=== PATIENT | female | born 1995 | race African-American/Black ===

== ENCOUNTER 2016-08-02 15:01 | Emergency (ER) | payer MEDICAID ==
[~2016-08-02] VITALS: Ht 172.7 cm; Wt 63.5 kg
--- NOTE | 2016-08-02 16:05 | NUR ---
Presents self to ed due to pelvic pain, spotting, lower back pain x 3 weeks. On iud. LMp 07/28/16. Vss. No dysuria nor hematuria.
[2016-08-02 16:21] LABS: APPEARANCE,URINE Slightly Cloudy (CLEAR); BILIRUBIN,URINE Negative (NEGATIVE); BLOOD, URINE Negative Ery/uL (NEGATIVE); COLOR,URINE Dark (YELLOW); KETONES,URINE Trace (NEGATIVE); LEUKOCYTE ESTERASE ,URINE Negative (NEGATIVE); NITRITE, URINE Negative (NEGATIVE); PROTEIN,URINE 100 mg/dl (NEGATIVE); UGLUCOSE Negative (NEGATIVE); UROBILINOGEN,URINE 0.2 EU/dL (0.2)
[2016-08-02 16:29] LABS: BASOPHILS % (AUTO) 0.5 % (0.0-2.0); EOSINOPHILS # (AUTO) 0.1 /CMM (0.0-0.7); EOSINOPHILS % (AUTO) 2.5 % (0.0-6.0); HEMATOCRIT 40 % (33-45); HEMOGLOBIN 12.8 g/dL (11.5-14.8); LYMPHOCYTES # (AUTO) 1.6 /CMM (0.8-4.8); LYMPHOCYTES % (AUTO) 32.1 % (20.0-44.0); MEAN CORPUSCULAR HEMOGLOBIN 26 PG (26.0-33.0); MEAN CORPUSCULAR HGB CONC 32 g/dl (31.0-36.0); MEAN CORPUSCULAR VOLUME 82 fL (82-100); MONOCYTES # (AUTO) 0.4 /CMM (0.1-1.30); MONOCYTES % (AUTO) 7.7 % (2.0-12.0); NEUTROPHILS # (AUTO) 2.9 /CMM (1.8-8.9); NEUTROPHILS % (AUTO) 57.2 % (43.0-81.0); PLATELET COUNT (AUTO) 225 /CMM (150-450); RDW COEFFICIENT OF VARIATION 13.2 (11.5-15.0); RED BLOOD CELL COUNT(AUTO) 4.92 MIL/uL (4.0-5.2)
[2016-08-02 16:41] LABS: CALCIUM, SERUM 8.9 mg/dL (8.5-10.1); CREATININE 0.8 mg/dL (0.6-1.3); POTASSIUM 4.3 mmol/L (3.5-5.1)
[2016-08-02 16:53] LABS: ADD URINE CULTURE NO; BACTERIA,URINE Rare /HPF (None Seen); RBC,URINE 0-3 /HPF (0-2); SQUAMOUS EPITHELIAL CELL,UR Few /HPF (None Seen)
[2016-08-02 16:54] LABS: MUCUS,URINE Moderate /LPF (None Seen)
[2016-08-02 17:23] VITALS: BP 120/85
--- NOTE | 2016-08-02 17:24 | NUR ---
Patient discharged to home in stable condition. Written and verbal after care instructions given. Patient verbalizes understanding of instruction.
== END 2016-08-02 17:24 | disposition home or self-care (01) ==
LOC: ER 15:03
DX: N83.201 Unspecified ovarian cyst, right side (principal)
CPT/HCPCS: 36415; 76856-TC; 80048-TC; 81000-TC; 84702-TC; 85025-TC; A4606; Z7610

== ENCOUNTER 2016-08-22 17:43 | Emergency (ER) | payer MEDICAID ==
[~2016-08-22] VITALS: Ht 172.7 cm; Wt 66.7 kg
--- NOTE | 2016-08-22 17:55 | NUR ---
PT CAME IN FOR PERSISTENT ABDOMINAL PAIN SINCE SHE WAS SEEN A WEEK AGO FOR RUPTURED OVARIAN CYST, ALSO C/O RASH,CHEST AND FACE. VSS. CONSTRUCTION PIT WORKER AT BS FOR EVAL. DENIES FEVER. SAFETY AND COMFORT MEASURES PROVIDED. WILL MONITOR.
--- NOTE | 2016-08-22 18:30 | NUR ---
URINE SAMPLE OBTAINED, SENT.
[2016-08-22 18:44] LABS: APPEARANCE,URINE CLEAR (CLEAR); BILIRUBIN,URINE NEGATIVE (NEGATIVE); BLOOD, URINE 2+ Ery/uL (NEGATIVE); COLOR,URINE YELLOW (YELLOW); KETONES,URINE TRACE (NEGATIVE); LEUKOCYTE ESTERASE ,URINE NEGATIVE (NEGATIVE); NITRITE, URINE NEGATIVE (NEGATIVE); PROTEIN,URINE TRACE mg/dl (NEGATIVE); UGLUCOSE NEGATIVE (NEGATIVE); UROBILINOGEN,URINE 0.2 EU/dL (0.2)
--- NOTE | 2016-08-22 18:44 | NUR ---
JULIAN CENTENO AT BS.
[2016-08-22 18:49] LABS: PREGNANCY TEST URINE QUAL NEGATIVE (NEGATIVE)
[2016-08-22 18:55] LABS: RBC,URINE NONE SEEN /HPF (0-2)
[2016-08-22 18:56] LABS: ADD URINE CULTURE NO; BACTERIA,URINE None seen /HPF (None Seen); MUCUS,URINE Many /LPF (None Seen); SQUAMOUS EPITHELIAL CELL,UR Moderate /HPF (None Seen); WBC,URINE 0-2 /HPF (0-3)
--- NOTE | 2016-08-22 19:16 | NUR ---
Patient discharged to home in stable condition. Written and verbal after care instructions given. Patient verbalizes understanding of instruction.
[2016-08-22 19:18] VITALS: BP 136/74
== END 2016-08-22 19:19 | disposition home or self-care (01) ==
LOC: ER 17:45
DX: R10.2 Pelvic and perineal pain (principal); B35.4 Tinea corporis; N83.209 Unspecified ovarian cyst, unspecified side; Z97.5 Presence of (intrauterine) contraceptive device
CPT/HCPCS: 76856-TC; 81000-TC; 84703-TC; A4606; Z7610

== ENCOUNTER 2017-01-28 19:59 | Emergency (ER) | payer MEDICAID ==
[~2017-01-28] VITALS: Ht 172.7 cm; Wt 65.3 kg
[2017-01-28 20:05] VITALS: BP 112/78
== END 2017-01-28 20:27 | disposition home or self-care (01) ==
LOC: ER 19:59
DX: L25.9 Unspecified contact dermatitis, unspecified cause (principal)
CPT/HCPCS: 99281; A4606; Z7610; Z7502

== ENCOUNTER 2017-07-04 21:04 | Emergency (ER) | payer MEDICAID ==
[~2017-07-04] VITALS: Ht 172.7 cm; Wt 63.5 kg
[2017-07-04 21:15] VITALS: BP 117/91
--- NOTE | 2017-07-04 21:36 | NUR ---
CHIO AMADOR AT BEDSIDE FOR EVAL.
[2017-07-04] MEDS ORDERED: HYDROCODONE/APAP 5/325MG 1 EACH TABLET ONE (21:52)
[2017-07-04] MEDS ORDERED: IBUPROFEN 600 MG TABLET PO ONE ×2 (21:53→22:00)
[2017-07-04] MEDS ORDERED: HYDROCODONE/APAP 5/325MG 1 EACH TABLET PO ONE (22:00)
== END 2017-07-04 21:58 | disposition home or self-care (01) ==
LOC: ER 21:08
DX: S00.531A Contusion of lip, initial encounter (principal); K08.109 Complete loss of teeth, unspecified cause, unspecified class; W22.8XXA Striking against or struck by other objects, initial encounter; Y93.89 Activity, other specified; Y92.89 Other specified places as the place of occurrence of the external cause; Y99.8 Other external cause status
CPT/HCPCS: 99283; A4606; Z7610

== ENCOUNTER 2017-07-18 20:43 | Emergency (ER) | payer MEDICAID, OTHER ==
[~2017-07-18] VITALS: Ht 172.7 cm; Wt 63.5 kg
--- NOTE | 2017-07-18 21:00 | NUR ---
BIBSELF C/O LOWER ABD PAIN. HX OVARIAN CYST. PT STATES SHE IS . PT AOX3 RR EVEN AND UNLABORED. NO SOB NOTED. NAD NOTED. NO NVD AT THIS TIME. PT GOWNED WAITING FOR MD MCCOY.
--- NOTE | 2017-07-18 21:02 | NUR ---
LAB AT BEDSIDE
[2017-07-18 21:11] LABS: BASOPHILS % (AUTO) 0.4 % (0.0-2.0); EOSINOPHILS % (AUTO) 1.1 % (0.0-6.0); HEMATOCRIT 38 % (33-45); HEMOGLOBIN 13.1 g/dL (11.5-14.8); LYMPHOCYTES % (AUTO) 32.8 % (20.0-44.0); MEAN CORPUSCULAR HGB CONC 34 g/dl (31.0-36.0); MEAN CORPUSCULAR VOLUME 82 fL (82-100); MONOCYTES # (AUTO) 0.3 /CMM (0.1-1.30); MONOCYTES % (AUTO) 5.1 % (2.0-12.0); NEUTROPHILS # (AUTO) 3.7 /CMM (1.8-8.9); NEUTROPHILS % (AUTO) 60.6 % (43.0-81.0); PLATELET COUNT (AUTO) 204 /CMM (150-450); RDW COEFFICIENT OF VARIATION 12.2 (11.5-15.0); WHITE BLOOD COUNT (AUTO) 6.1 K/uL (4.3-11.0)
[2017-07-18 21:21] LABS: CALCIUM, SERUM 9.3 mg/dL (8.5-10.1); CREATININE 0.7 mg/dL (0.6-1.3); POTASSIUM 3.8 mmol/L (3.5-5.1)
--- NOTE | 2017-07-18 21:24 | NUR ---
PT TO RADIOLOGY FOR ERIC.
[2017-07-18 21:26] LABS: INR 1.06 (0.85-1.15)
[2017-07-18 22:09] LABS: APPEARANCE,URINE CLEAR (CLEAR); BILIRUBIN,URINE NEGATIVE (NEGATIVE); BLOOD, URINE 2+ Ery/uL (NEGATIVE); COLOR,URINE YELLOW (YELLOW); KETONES,URINE 2+ (NEGATIVE); LEUKOCYTE ESTERASE ,URINE NEGATIVE (NEGATIVE); NITRITE, URINE NEGATIVE (NEGATIVE); PROTEIN,URINE NEGATIVE (NEGATIVE); UGLUCOSE NEGATIVE (NEGATIVE); UROBILINOGEN,URINE 0.2 EU/dL (0.2)
[2017-07-18 22:31] LABS: BACTERIA,URINE Few /HPF (None Seen); MUCUS,URINE Many /LPF (None Seen); SQUAMOUS EPITHELIAL CELL,UR Few /HPF (None Seen); WBC,URINE 0-2 /HPF (0-3)
[2017-07-18 23:18] VITALS: BP 124/70
== END 2017-07-18 23:20 | disposition home or self-care (01) ==
LOC: ER 20:48
DX: O20.0 Threatened abortion (principal); N83.202 Unspecified ovarian cyst, left side
CPT/HCPCS: 36415; 76856; 80048; 81001; 84702; 85025; 85730; 99285; A4606; Z7610; 81000-TC

== ENCOUNTER 2017-07-24 19:56 | Emergency (ER) | payer MEDICAID, OTHER ==
[~2017-07-24] VITALS: Ht 172.7 cm; Wt 63.5 kg
--- NOTE | 2017-07-24 20:10 | NUR ---
TO BED 16 A 21 YO FEMALE PATIENT BBSELF AND SAID, "WAS HERE 4 DAYS AGO AND THE DOCTOR TOLD ME TO COME BACK IF I STILL HAVE LOWER ABD PAIN FOR OVARIAN CYST." PATIENT IS AAO4, NAD NOTED. VSS. NONDIAPHORETIC. AMBULATORY. COMFORT MEASURES RENDERED.
--- NOTE | 2017-07-24 20:35 | NUR ---
METROLOGY TECHNICIAN MARSII AT BEDSIDE TO EVALUATE PATIENT.
[2017-07-24 21:00] LABS: BASOPHILS # (AUTO) 0.1 /CMM (0.0-0.2); BASOPHILS % (AUTO) 1.3 % (0.0-2.0); EOSINOPHILS % (AUTO) 3.8 % (0.0-6.0); HEMATOCRIT 35 % (33-45); HEMOGLOBIN 11.7 g/dL (11.5-14.8); LYMPHOCYTES # (AUTO) 1.7 /CMM (0.8-4.8); LYMPHOCYTES % (AUTO) 35.1 % (20.0-44.0); MEAN CORPUSCULAR HGB CONC 33 g/dl (31.0-36.0); MEAN CORPUSCULAR VOLUME 82 fL (82-100); MONOCYTES # (AUTO) 0.3 /CMM (0.1-1.30); MONOCYTES % (AUTO) 5.8 % (2.0-12.0); NEUTROPHILS # (AUTO) 2.7 /CMM (1.8-8.9); PLATELET COUNT (AUTO) 175 /CMM (150-450); RDW COEFFICIENT OF VARIATION 12.7 (11.5-15.0); RED BLOOD CELL COUNT(AUTO) 4.31 MIL/uL (4.0-5.2)
[2017-07-24 21:14] LABS: CALCIUM, SERUM 8.7 mg/dL (8.5-10.1); CREATININE 0.6 mg/dL (0.6-1.3); POTASSIUM 3.9 mmol/L (3.5-5.1)
[2017-07-24 21:24] LABS: APPEARANCE,URINE Clear (CLEAR); BILIRUBIN,URINE Negative (NEGATIVE); BLOOD, URINE Negative Ery/uL (NEGATIVE); COLOR,URINE Yellow (YELLOW); KETONES,URINE Negative (NEGATIVE); LEUKOCYTE ESTERASE ,URINE Negative (NEGATIVE); NITRITE, URINE Negative (NEGATIVE); PROTEIN,URINE Negative (NEGATIVE); UGLUCOSE Negative (NEGATIVE); UROBILINOGEN,URINE 0.2 EU/dL (0.2)
--- NOTE | 2017-07-24 21:53 | NUR ---
Patient discharged to home in stable condition. Written and verbal after care instructions given. Patient verbalizes understanding of instruction. Patient is ambulatory with steady gait, vss, nad noted.
[2017-07-24 21:54] VITALS: BP 112/60
== END 2017-07-24 21:55 | disposition home or self-care (01) ==
LOC: ER 19:57
DX: O26.891 Other specified pregnancy related conditions, first trimester (principal); R10.30 Lower abdominal pain, unspecified; Z72.0 Tobacco use; Z3A.01 Less than 8 weeks gestation of pregnancy
CPT/HCPCS: 36415; 76856-TC; 80048-TC; 81000-TC; 84702-TC; 85025-TC; A4606; Z7610

== ENCOUNTER 2019-11-06 19:42 | Emergency (ER) | payer MEDICAID ==
[~2019-11-06] VITALS: Ht 172.7 cm; Wt 65.8 kg
[2019-11-06 19:42] VITALS: BP 115/75
--- NOTE | 2019-11-06 20:31 | NUR ---
REPORT CALLED TO [facility] DISPATCH STARTING SHEET TANK OPERATOR #[id number].
--- NOTE | 2019-11-06 21:10 | NUR ---
Patient discharged to home in stable condition. Written and verbal after care instructions given. Patient verbalizes understanding of instruction. EMT was at the bedside for wound cleaning, dressing and finger splint.
== END 2019-11-06 21:16 | disposition home or self-care (01) ==
LOC: ER 19:50
DX: S63.690A Other sprain of right index finger, initial encounter (principal); S60.311A Abrasion of right thumb, initial encounter; M79.645 Pain in left finger(s); Z60.2 Problems related to living alone; Y04.1XXA Assault by human bite, initial encounter; Y93.89 Activity, other specified; Y92.89 Other specified places as the place of occurrence of the external cause; Y99.8 Other external cause status
CPT/HCPCS: 73140-TC

== ENCOUNTER 2019-12-31 15:52 | Emergency (ER) | payer MEDICAID ==
[~2019-12-31] VITALS: Ht 172.7 cm; Wt 63.5 kg
[2019-12-31 16:15] VITALS: BP 116/76
== END 2019-12-31 16:30 | disposition home or self-care (01) ==
LOC: ER 15:52
DX: S80.862A Insect bite (nonvenomous), left lower leg, initial encounter (principal); Z60.2 Problems related to living alone; W57.XXXA Bitten or stung by nonvenomous insect and other nonvenomous arthropods, initial encounter; Y93.89 Activity, other specified; Y92.89 Other specified places as the place of occurrence of the external cause; Y99.8 Other external cause status

== ENCOUNTER 2020-01-06 19:12 | Emergency (ER) | payer MEDICAID ==
[~2020-01-06] VITALS: Ht 172.7 cm; Wt 61.2 kg
[2020-01-06 19:34] VITALS: BP 141/98
== END 2020-01-06 20:03 | disposition home or self-care (01) ==
LOC: ER 19:17
DX: S70.362D Insect bite (nonvenomous), left thigh, subsequent encounter (principal); Z60.2 Problems related to living alone; W57.XXXD Bitten or stung by nonvenomous insect and other nonvenomous arthropods, subsequent encounter
CPT/HCPCS: 99283; A6403

== ENCOUNTER 2021-03-31 17:17 | Emergency (ER) | payer MEDICAID, OTHER ==
[~2021-03-31] VITALS: Ht 172.7 cm; Wt 66.2 kg
[2021-03-31] MEDS ORDERED: IV NS 0.9% 250 ML IV ONE (19:25)
[2021-03-31] MEDS ORDERED: IOHEXOL-300 100 ML VIAL IV ONE (19:25)
[2021-03-31] MEDS ORDERED: KETOROLAC TROMETHAMINE INJ 30 MG/ML VIAL ONE (19:30)
--- NOTE | 2021-03-31 19:38 | NUR ---
BIBS C/O R EYE PAIN AND REDNESS X1DAY THAT RADIATES TO R EAR AND FRONTAL REGION OF HEAD. PAIN DESCRIBED CONSTANT, SHARP, AND ACHY. 01/23. WAS SEEN AT AND PRESCRIBED ABX BUT WANTED SECOND OPINION. BREATHING EVEN AND UNLABORED ALL V/S STABLE.
[2021-03-31] MEDS: KETOROLAC TROMETHAMINE INJ 30 MG/ML VIAL IM ONE (19:43)
[2021-03-31] MEDS ORDERED: IBUP-1955 PO (21:45)
[2021-03-31] MEDS ORDERED: NEOM10DR11 OT (21:48)
[2021-03-31] MEDS ORDERED: CLIN300C12 PO (21:51)
[2021-03-31] MEDS ORDERED: AMOX-430 PO (21:52)
--- NOTE | 2021-03-31 22:02 | NUR ---
Patient discharged to home in stable condition. Written and verbal after care instructions given. Patient verbalizes understanding of instruction. Pt ambulatory with a steady gait
[2021-03-31 22:15] VITALS: BP 116/80
== END 2021-03-31 22:15 | disposition home or self-care (01) ==
LOC: ER 17:26
DX: H00.031 Abscess of right upper eyelid (principal); H00.032 Abscess of right lower eyelid
CPT/HCPCS: 70481; 96372; 99285; J1885; J7050; Q9967

== ENCOUNTER 2022-08-15 19:35 | Emergency (ER) | payer OTHER ==
[~2022-08-15] VITALS: Ht 172.7 cm; Wt 76.2 kg
[~2022-08-15 19:35] MED LIST: AMOX-430 PO; CLIN300C12 PO; IBUP-1955 PO; NEOM10DR11 OT
--- NOTE | 2022-08-15 21:47 | NUR ---
URINE COLLECTED AND SENT TO LAB
--- NOTE | 2022-08-15 21:54 | NUR ---
BIBS FOR LEFT EAR PAIN SINCE YESTERDAY; ALSO HERE FOR STD CHECK. PT AAOX4, IN NAD, PLACED COMFORTABLY IN BED, VITALS CHECKED.
[2022-08-15] MEDS ORDERED: CEFTRIAXONE 500 MG VIAL IM ONE (22:00)
[2022-08-15] MEDS ORDERED: CEFTRIAXONE 500 MG VIAL ONE (22:03)
[2022-08-15] MEDS ORDERED: LIDOCAINE 1% INJ 50 ML MDV IJ ONE (22:04)
[2022-08-15] MEDS ORDERED: LIDOCAINE /MPF 1% VIAL 5 ML VIAL ONE (22:06)
[2022-08-15] MEDS ORDERED: DOXY100C2 PO (22:12)
[2022-08-15] MEDS ORDERED: AMOX500C2 PO (22:12)
--- NOTE | 2022-08-15 22:16 | NUR ---
SECTIONAL BELT MOLD ASSEMBLER AT BEDSIDE
--- NOTE | 2022-08-15 22:20 | NUR ---
Patient discharged to home in stable condition. Written and verbal after care instructions given. Patient verbalizes understanding of instruction. Pt tolerated IM medication well. In NAD post IM medication administration.
[2022-08-15 22:22] VITALS: BP 120/72
== END 2022-08-15 22:20 | disposition home or self-care (01) ==
LOC: ER 19:38
DX: H66.92 Otitis media, unspecified, left ear (principal); N89.8 Other specified noninflammatory disorders of vagina; Z60.2 Problems related to living alone; Z79.899 Other long term (current) drug therapy
CPT/HCPCS: 99283; 86592; 86593; 96372; 36415; 87806; 87491; 87591; J0696; J3490